=== PATIENT | female | born 1935 | race Caucasian/White ===

== ENCOUNTER 2019-05-26 08:32 | Outpatient (CLI) | payer MEDICARE, BC ==
[2019-05-26 09:27] LABS: Hemoglobin 12.2 g/dL (12.0-16.0); Mean Corpuscular HGB CONC 33.9 g/dL (32.0-36.0); Mean Corpuscular Hemoglobin 31.1 pg (27.0-31.0); Mean Corpuscular Volume 91.8 fL (78.0-98.0); Mean Platelet Volume 10.2 fL (7.4-10.4); Platelet Count 239 thou/uL (130-400); RBC Distribution Width 11.5 % (11.5-14.5); Red Blood Cell (RBC) Count 3.93 mill/uL (4.20-5.40); White Blood Cell (WBC) Count 7.5 thou/uL (4.8-10.8)
[2019-05-26 09:33] LABS: PTT 27.2 SEC (22.9-36.1); Prothrombin Time 13.4 SEC (12.0-14.7)
[2019-05-26 09:49] LABS: Anion Gap 15 mmol/L (10-20); BUN (Urea Nitrogen) 59 mg/dL (9.8-20.1); Calc. Creatinine Clearance 0 mL/min (70-130); Carbon Dioxide 24 mmol/L (23-31); Chloride 103 mmol/L (98-107); Estimated GFR-MDRD 24; Glucose 151 mg/dL (83-110); Potassium 4.4 mmol/L (3.5-5.1); Sodium 138 mmol/L (136-145)
--- NOTE | 2019-05-26 12:27 | EKG ---
Test Reason : Blood Pressure : / mmHG Vent. Rate : 091 BPM Atrial Rate : 091 BPM P-R Int : 194 ms QRS Dur : 114 ms QT Int : 378 ms P-R-T Axes : 048 -21 052 degrees QTc Int : 464 ms Sinus rhythm with Possible Premature atrial complexes with Abberant conduction Minimal voltage criteria for LVH, may be normal variant abnormal When compared with ECG of 07-MAY-2019 12:55, Abberant conduction is now Present Confirmed by DR. Dion CARRINGTON ([id number]) on 05/26/2019 12:26:45 PM Referred By: ALLISON Confirmed By:DR. Dion CARRINGTON
== END 2019-05-26 08:33 | disposition home or self-care (01) ==
LOC: LABBT 08:32
PROVIDERS: ATTEND Internal Medicine Cardiovascular Disease
DX: Z01.818 Encounter for other preprocedural examination (principal); I34.0 Nonrheumatic mitral (valve) insufficiency
CPT/HCPCS: 80048; 85027; 85610; 85730; 93005; 93010

== ENCOUNTER → 2019-05-28 | Day surgery (SDC) | payer MEDICARE, BC ==
[2019-05-26 08:49] VITALS: BMI 32.8
[~2019-05-28] MED LIST: PROPOFOL 20 ML ONE; PROPOFOL 200 MG/20 ML VIAL ONE
--- NOTE | 2019-05-28 19:40 | ECHO ---
DATE OF SERVICE: 05/28/19 PREPROCEDURE DIAGNOSIS: Mitral valve regurgitation. The Anesthesiology department provided with sedation for the patient. Please see their notes for det ails. After adequate sedation was achieved, transesophageal probe was inserted into the mouth and into the esophagus. Multiplanar views were obtained. Left ventricle is normal size, normal wall thickness. Systolic function normal. Estimated EF at 60-6 5%. Left atrium is mildly dilated. Left atrial appendage is without any mass or thrombus. Normal velocities. Right atrium is normal sized. The interatrial septum appears to be intact by color Doppler and by agitated saline study. The right ventricle is normal size with normal systolic function. Aortic valve is mildly sclerotic with no stenosis or regurgitation. Mitral valve has mild posterior leaflet mitral valve prolapse. I do not see any evidence of ruptured chordea. There is a small jet of mitral regurgitation with anteriorly directed jet of mitral regurgit ation suggestive of moderate to severe mitral regurgitation. Tricuspid valve is structurally normal. There is moderate TR with normal right ventricular systolic pressures. Pulmonary valve is structurally normal. There is mild PI. No stenosis. 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 CONCLUSIONS: 1. Normal LV systolic function, EF at 60-65%. 2. Left atrial enlargement. 3. Interatrial septum appears to be intact with a negative agitated saline study. 4. Moderate TR with normal right ventricular systolic pressures. 5. Mild PI. 6. Aortic valve sclerosis. 7. Minimal mitral valve prolapse of the posterior leaflet of the mitral valve with moderate to sever e mitral anteriorly directed jet of mitral regurgitation with Coanda effect.
== END ==
LOC: CCL 06:28
PROVIDERS: ATTEND Internal Medicine Cardiovascular Disease
PROC: B24BZZ4 Ultrasonography of Heart with Aorta, Transesophageal (ICD-10-PCS; principal; 2019-05-28)
DX: I07.1 Rheumatic tricuspid insufficiency (principal); I37.1 Nonrheumatic pulmonary valve insufficiency; I35.8 Other nonrheumatic aortic valve disorders; I34.1 Nonrheumatic mitral (valve) prolapse; I70.0 Atherosclerosis of aorta; E11.9 Type 2 diabetes mellitus without complications; E03.9 Hypothyroidism, unspecified; E78.5 Hyperlipidemia, unspecified; I11.0 Hypertensive heart disease with heart failure; I50.9 Heart failure, unspecified; Z79.82 Long term (current) use of aspirin; Z79.84 Long term (current) use of oral hypoglycemic drugs; Z79.899 Other long term (current) drug therapy
CPT/HCPCS: 93312; J2704

== ENCOUNTER 2022-05-04 14:04 | Emergency (ER) | payer MEDICARE, BC ==
[2022-05-04] MEDS ORDERED: Oxymetazoline HCl 0.05% (30 ML BOT) ONE (14:16)
== END 2022-05-04 16:22 | disposition home or self-care (01) ==
LOC: ERS 14:04
DX: R04.0 Epistaxis (principal); E11.9 Type 2 diabetes mellitus without complications; E03.9 Hypothyroidism, unspecified; I10 Essential (primary) hypertension; E78.5 Hyperlipidemia, unspecified; Z79.84 Long term (current) use of oral hypoglycemic drugs; Z79.899 Other long term (current) drug therapy
CPT/HCPCS: 99283

== ENCOUNTER 2023-06-22 08:09 | Emergency (ER) | payer MEDICARE, BC ==
[2023-06-22 09:32] LABS: Bacteria/HPF None Seen HPF (None Seen); Bilirubin Negative (Negative); Blood, Urine Trace (Negative); CAUTI Indications for Culture Dysuria,urgency,freq; Clarity Clear (Clear); Glucose, Urine (Dipstick) Normal (Negative); Ketone, Urine Negative (Negative); Leukocyte 75 Leu/uL (Negative); Nitrite Negative (Negative); Protein, Urine (Dipstick) 100 mg/dL (Neg-Trace); Specific Gravity, Urine 1.008 (1.002-1.036); Squamous Epithelial 0-3 HPF (0-3); Urobilinogen Normal mg/dL (Less than 2); WBC/HPF 0-3 HPF (0-3); pH, Urine 7.5 (5.0-9.0)
[2023-06-22 09:39] LABS: Urine Culture Reflex No No
[2023-06-22 09:47] LABS: #Basophils 0.1 thou/uL (0.0-0.2); #Eosinphils 0.5 thou/uL (0.0-0.7); #Monocytes 0.7 thou/uL (0.11-0.59); #Neutrophils 5.7 thou/uL (1.40-6.50); %Basophils 1.3 % (0.0-1.0); %Eosinophils 5.4 % (0.0-10.0); %Lymphocytes 17.5 % (21.0-51.0); %Monocytes 8.3 % (0.0-10.0); %Neutrophils 67.3 % (42.0-75.0); Hematocrit 36.1 % (36.0-47.0); Hemoglobin 11.4 g/dL (12.0-16.0); Mean Corpuscular HGB CONC 31.6 g/dL (32.0-36.0); Mean Corpuscular Hemoglobin 30.1 pg (27.0-31.0); Mean Corpuscular Volume 95.3 fl (78.0-98.0); Mean Platelet Volume 11.5 fL (7.4-10.4); Platelet Count 264 10x3/uL (130-400); RBC Distribution Width 12.7 % (11.5-14.5); Red Blood Cell (RBC) Count 3.79 mill/uL (4.20-5.40); White Blood Cell (WBC) Count 8.5 10x3/uL (4.8-10.8)
[2023-06-22 10:12] LABS: ALT (SGPT) 10 U/L (8-55); AST (SGOT) 17 U/L (5-34); Albumin 4.1 g/dL (3.4-4.8); Alkaline Phosphatase 52 U/L (40-110); Anion Gap 17 mmol/L (10-20); BUN (Urea Nitrogen) 14 mg/dL (9.8-20.1); Bilirubin, Total 0.8 mg/dL (0.2-1.2); Calc. Creatinine Clearance 0 mL/min (70-130); Calcium 10.1 mg/dL (7.8-10.44); Carbon Dioxide 30 mmol/L (23-31); Chloride 101 mmol/L (98-107); Estimated GFR 77; Globulin 3.3 g/dL (2.4-3.5); Glucose 151 mg/dL (83-110); Potassium 3.1 mmol/L (3.5-5.1); Protein, Total 7.4 g/dL (5.8-8.1); Sodium 145 mmol/L (136-145)
[2023-06-22 10:15] LABS: Troponin I 0.014 ng/mL (< 0.028)
== END 2023-06-22 11:58 | disposition home or self-care (01) ==
LOC: ERS 08:09
DX: I10 Essential (primary) hypertension (principal); E03.9 Hypothyroidism, unspecified; E78.5 Hyperlipidemia, unspecified; Z79.899 Other long term (current) drug therapy; Z79.82 Long term (current) use of aspirin
CPT/HCPCS: 36415; 80053; 81001; 84484; 85025; 93005

== ENCOUNTER 2023-10-08 17:41 | Emergency (ER) | payer MEDICARE, BC ==
[2023-10-08 18:49] LABS: #Basophils 0.1 thou/uL (0.0-0.2); #Eosinphils 0.3 thou/uL (0.0-0.7); #Monocytes 0.7 thou/uL (0.11-0.59); #Neutrophils 4.6 thou/uL (1.40-6.50); %Basophils 0.8 % (0.0-1.0); %Eosinophils 4.1 % (0.0-10.0); %Lymphocytes 21.4 % (21.0-51.0); %Monocytes 9.7 % (0.0-10.0); %Neutrophils 63.7 % (42.0-75.0); Hematocrit 38.7 % (36.0-47.0); Mean Corpuscular HGB CONC 33.6 g/dL (32.0-36.0); Mean Corpuscular Volume 92.1 fl (78.0-98.0); Mean Platelet Volume 11.5 fL (7.4-10.4); Platelet Count 252 10x3/uL (130-400); RBC Distribution Width 14.1 % (11.5-14.5); White Blood Cell (WBC) Count 7.1 10x3/uL (4.8-10.8)
[2023-10-08 19:28] LABS: ALT (SGPT) 10 U/L (8-55); AST (SGOT) 15 U/L (5-34); Albumin 4.3 g/dL (3.4-4.8); Alkaline Phosphatase 60 U/L (40-110); Anion Gap 11 mmol/L (10-20); BUN (Urea Nitrogen) 25 mg/dL (9.8-20.1); Bilirubin, Total 0.6 mg/dL (0.2-1.2); Calc. Creatinine Clearance 0 mL/min (70-130); Carbon Dioxide 29 mmol/L (23-31); Chloride 105 mmol/L (98-107); Estimated GFR 77; Globulin 3.8 g/dL (2.4-3.5); Glucose 123 mg/dL (83-110); Potassium 3.8 mmol/L (3.5-5.1); Protein, Total 8.1 g/dL (5.8-8.1); Sodium 141 mmol/L (136-145)
[2023-10-08 20:43] LABS: Troponin I Less than 0.010 ng/mL (< 0.028)
[2023-10-08] MEDS ORDERED: Acetaminophen 500 MG TAB ONE (20:46)
[2023-10-08] MEDS ORDERED: hydrALAZINE 25 MG TAB ONE (20:46)
== END 2023-10-08 21:28 | disposition home or self-care (01) ==
LOC: ERS 17:41
DX: I16.0 Hypertensive urgency (principal); I10 Essential (primary) hypertension; E78.5 Hyperlipidemia, unspecified; E03.9 Hypothyroidism, unspecified; Z79.899 Other long term (current) drug therapy; Z79.82 Long term (current) use of aspirin
CPT/HCPCS: 36415; 71045; 80053; 84484; 85025; 93005

== ENCOUNTER 2024-02-18 14:43 | Emergency (ER) | payer MEDICARE, BC ==
[2024-02-18] MEDS ORDERED: Acetaminophen 500 MG TAB ONE (15:36)
== END 2024-02-18 16:01 | disposition home or self-care (01) ==
LOC: ERS 14:43
DX: S42.252A Displaced fracture of greater tuberosity of left humerus, initial encounter for closed fracture (principal); I10 Essential (primary) hypertension; E03.9 Hypothyroidism, unspecified; E78.5 Hyperlipidemia, unspecified; W22.8XXA Striking against or struck by other objects, initial encounter; Z55.6 Problems related to health literacy; Z79.82 Long term (current) use of aspirin; Z79.899 Other long term (current) drug therapy